=== PATIENT | male | born 1995 | race Caucasian/White ===

== ENCOUNTER 2017-10-09 19:59 | Emergency (ER) | payer OTHER ==
[~2017-10-09] VITALS: Ht 180.3 cm; Wt 143.8 kg
[~2017-10-09 19:59] MED LIST: GABAPENTIN100 MG PO; TRAMADOL 50 MG50 MG PO; TRAZODONE 150150 M1; ZOLOFT 50 MG TA50 M1 PO
[2017-10-09 20:46] LABS: ABSOLUTE BASOPHILS 0.1 thou/uL (0.0-0.2); ABSOLUTE EOSINOPHILS 0.3 thou/uL (0.0-0.7); ABSOLUTE LYMPHOCYTES 2.5 thou/uL (0.8-5.3); ABSOLUTE MONOCYTES 0.7 thou/uL (0.0-1.2); ABSOLUTE NEUTROPHILS 9.5 thou/uL (1.6-8.1); BASOPHILS 0.5 %; EOSINOPHILS 2.3 %; HEMATOCRIT 47.8 % (42.0-52.0); HEMOGLOBIN 16.2 gm/dL (14.0-18.0); LYMPHOCYTES 19.3 %; MCH 28.6 pg (26.0-34.0); MCHC 33.8 g/dL (28.0-37.0); MCV 84.5 fL (80.0-100.0); MONOCYTES 5.4 %; MPV 9.3 fl. (7.2-11.1); NUCLEATED RBCS 0 /100WBC; PLATELET COUNT* 230 thou/uL (150-400); POLYS 72.5 %; RBC 5.66 mil/uL (4.50-6.00); RDW-CV 13.4 % (10.5-14.5); WBC 13.1 thou/uL (4.0-11.0)
[2017-10-09 20:58] LABS: CALCIUM 8.9 mg/dL (8.5-10.1); POTASSIUM 3.9 mmol/L (3.5-5.1)
[2017-10-09 21:02] LABS: ALBUMIN 3.8 g/dL (3.4-5.0); TOTAL BILIRUBIN 0.4 mg/dL (<0.1-1.0); TOTAL PROTEIN 7.6 g/dL (6.4-8.2)
[2017-10-09] MEDS ORDERED: PRILOSEC 20 MG20 MG PO (21:34)
[2017-10-09] MEDS ORDERED: CARAFATE 1 GM TA1 GM PO (21:34)
[2017-10-09 21:52] VITALS: BP 145/67
--- NOTE | 2017-10-10 17:16 | EKG ---
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1995 Requested By: Liliana Swann Order Number: [id number] Chelsey MD: Zana Perez Measurements Intervals [place] Rate: 76 P: 45 [place]: 152 QRS: 3 QRSD: 105 T: -5 QT: 364 QTc: 410 Interpretive Statements Sinus arrhythmia Borderline T abnormalities, inferior leads Compared to ECG 09/06/2013 02:59:19 T-wave abnormality now present Sinus rhythm no longer present Electronically Signed On 10-10-2017 17:16:02 ORE PUNCHER by Zana Perez [email or web address] <ELECTRONICALLY SIGNED> By: Zana Perez MD, [facility] 10/10/17 1716 02 02 Zana Perez MD, FACC /EPI
== END 2017-10-09 21:52 | disposition home or self-care (01) ==
LOC: M.ERS 19:59
PROVIDERS: Personal Emergency Response Attendant
DX: K21.9 Gastro-esophageal reflux disease without esophagitis (principal); K27.9 Peptic ulcer, site unspecified, unspecified as acute or chronic, without hemorrhage or perforation; F41.0 Panic disorder [episodic paroxysmal anxiety]; F17.210 Nicotine dependence, cigarettes, uncomplicated; Z88.6 Allergy status to analgesic agent

== ENCOUNTER 2018-02-17 17:27 | Emergency (ER) | payer OTHER ==
[~2018-02-17] VITALS: Ht 177.8 cm; Wt 142.9 kg
[~2018-02-17 17:27] MED LIST changes: +CARAFATE 1 GM TA1 GM PO; +PRILOSEC 20 MG20 MG PO
[2018-02-17 17:57] LABS: URINE BILIRUBIN NEGATIVE (Negative); URINE BLOOD 2+ (Negative); URINE CLARITY CLEAR; URINE COLOR YELLOW; URINE GLUCOSE-RANDOM NEGATIVE (Negative); URINE KETONES TRACE (Negative); URINE LEUKOCYTES-REFLEX NEGATIVE (Negative); URINE NITRITE-REFLEX NEGATIVE (Negative); URINE PROTEIN 3+ (Negative); URINE SPECIFIC GRAVITY >= 1.030 (1.005-1.030)
[2018-02-17 18:12] LABS: MUCUS None Seen strn/LPF (None Seen); SQUAMOUS 0-3 Few /LPF (0-3); URINE RBC 0-2 Rare /HPF (0-2)
[2018-02-17 18:13] LABS: BACTERIA-REFLEX None Seen /HPF (None Seen); CRYSTALS None Seen /LPF (None Seen); HYALINE CASTS 0-3 Few /LPF (None Seen); URINE WBC-REFLEX 0-5 Rare /HPF (0-5)
[2018-02-17 18:18] LABS: ABSOLUTE BASOPHILS 0.1 thou/uL (0.0-0.2); ABSOLUTE EOSINOPHILS 0.6 thou/uL (0.0-0.7); ABSOLUTE LYMPHOCYTES 2.8 thou/uL (0.8-5.3); ABSOLUTE MONOCYTES 0.6 thou/uL (0.0-1.2); ABSOLUTE NEUTROPHILS 6.8 thou/uL (1.6-8.1); BASOPHILS 0.9 %; EOSINOPHILS 5.8 %; HEMATOCRIT 45.8 % (42.0-52.0); HEMOGLOBIN 15.4 gm/dL (14.0-18.0); LYMPHOCYTES 25.7 %; MCH 28.4 pg (26.0-34.0); MCHC 33.6 g/dL (28.0-37.0); MCV 84.5 fL (80.0-100.0); MONOCYTES 5.7 %; MPV 8.8 fl. (7.2-11.1); NUCLEATED RBCS 0 /100WBC; PLATELET COUNT* 201 thou/uL (150-400); POLYS 61.9 %; RBC 5.42 mil/uL (4.50-6.00); RDW-CV 13.5 % (10.5-14.5)
[2018-02-17 18:38] LABS: CALCIUM 8.5 mg/dL (8.5-10.1); CREATININE 0.9 mg/dL (0.6-1.3); POTASSIUM 3.8 mmol/L (3.5-5.1)
[2018-02-17 18:42] LABS: ALBUMIN 3.1 g/dL (3.4-5.0); TOTAL BILIRUBIN 0.3 mg/dL (<0.1-1.0); TOTAL PROTEIN 6.5 g/dL (6.4-8.2)
[2018-02-17] MEDS ORDERED: TRAMADOL 50 MG50 MG PO (20:28)
[2018-02-17] MEDS ORDERED: HYDROCODONE-AP1 EAC6 PO (20:44)
[2018-02-17 20:47] VITALS: BP 145/82
== END 2018-02-17 20:47 | disposition home or self-care (01) ==
LOC: M.ERS 17:27
PROVIDERS: Physician Assistant
DX: R31.9 Hematuria, unspecified (principal); R80.9 Proteinuria, unspecified; R10.31 Right lower quadrant pain; F41.0 Panic disorder [episodic paroxysmal anxiety]; F17.210 Nicotine dependence, cigarettes, uncomplicated

== ENCOUNTER 2018-07-13 15:40 | Emergency (ER) | payer OTHER ==
[~2018-07-13] VITALS: Ht 177.8 cm; Wt 140.6 kg
[~2018-07-13 15:40] MED LIST changes: +HYDROCODONE-AP1 EAC6 PO
[2018-07-13] MEDS ORDERED: MEDROLDOSEPACK PO (17:16)
[2018-07-13 17:30] VITALS: BP 139/94
== END 2018-07-13 17:31 | disposition home or self-care (01) ==
LOC: M.ERS 15:40
DX: H20.9 Unspecified iridocyclitis (principal); J02.9 Acute pharyngitis, unspecified; R22.0 Localized swelling, mass and lump, head; F41.0 Panic disorder [episodic paroxysmal anxiety]